=== PATIENT | female | born 1945 | race Caucasian/White ===

== ENCOUNTER 2018-04-10 15:03 | Emergency (ER) | payer MEDICARE, OTHER, SELFPAY ==
[2018-04-10 15:16] VITALS: BP 153/72; PULSE 84; RESP 16; TEMP 37; O2SAT 100; BMI 28.9
--- NOTE | 2018-04-10 15:53 | PC.NURSE ---
Pt was dx with kidney stone at [facility]. Pt reports pain moved from R mid back now to R flank. Denies urinary sx, dysuria, fever/chills, N-V, hematuria.
[2018-04-10 15:55] LABS: Bacteria Urine Few (2-10); RBC Urine 5-10/HPF (0-5/HPF); Squamous Epithelial Cell Urine 5-10 /HPF; WBC Urine 5-10/HPF (0-5/HPF)
[2018-04-10 15:56] LABS: Culture Indicated Urine Specimen Cultured
--- NOTE | 2018-04-10 16:02 | ED_ITS ---
HPI - Female Genitourinary <Diana Holly PA-C - Last Filed: 04/10/18 18:59> General Chief complaint: Urogenital-Female Stated complaint: thinks she has a kidney stone Time Seen by Provider: 04/10/18 15:15 Source: patient Mode of arrival: ambulatory Limitations: no limitations History of Present Illness HPI Narrative: This 72-year-old female was seen 3 days ago at a local urgent care due to right flank pain and diagnosed with kidney stone. She states that she is concerned because pain has continued to worsen, (worried about using up her pain medication but it does help). She has poor appetite and some nausea, no vomiting. She has not had hematuria. She has not had any new fever. She was given a prescription for Augmentin but never started this, also Temple and Zofran. She brought reports with her and had a 5 x 7 mm impacted stone at the UPJ causing moderate hydronephrosis. Related Data Home Medications Medication Instructions Recorded Confirmed amlodipine 5 mg tablet 5 mg PO DAILY 03/21/18 04/10/18 atorvastatin 80 mg tablet 80 mg PO QPM 03/21/18 04/10/18 bupropion HCl XL 150 mg 24 hr 450 mg PO QAM tab 03/21/18 04/10/18 tablet, extended release lamotrigine 100 mg tablet 100 mg PO QAM 03/21/18 04/10/18 levothyroxine 100 mcg capsule 100 mcg PO MOTUWETHFR 03/21/18 04/10/18 lisinopril 20 mg tablet 20 mg PO DAILY 03/21/18 04/10/18 metformin 500 mg tablet 1,000 mg PO BID 03/21/18 04/10/18 amoxicillin-pot clavulanate 1 tab PO BIDX7 04/10/18 04/10/18 hydrocodone-acetaminophen 1 - 2 tab PO Q6H PRN 04/10/18 04/10/18 lamotrigine 200 mg PO QPM 04/10/18 04/10/18 levothyroxine 200 mcg PO SUSA 04/10/18 04/10/18 ondansetron 4 mg PO Q8H PRN 04/10/18 04/10/18 tamsulosin 0.4 mg PO DAILYX5 04/10/18 04/10/18 Previous Rx's Medication Instructions Recorded hydrocodone-acetaminophen 1 tab PO Q6H PRN #18 tab 04/10/18 ondansetron 4 mg PO Q6-8H PRN #10 tab 04/10/18 Allergies Allergy/AdvReac Type Severity Reaction Status Date / Time ciprofloxacin [From Cipro] Allergy Verified 04/10/18 15:16 levofloxacin Allergy Verified 04/10/18 15:16 Review of Systems <MAURICIO Yeboah Last Filed: 04/10/18 18:59> Review of Systems All systems reviewed & are unremarkable except as noted in HPI and below Exam <MAURICIO Yeboah Last Filed: 04/10/18 18:59> Narrative Exam Narrative: GENERAL APPEARANCE: Patient sitting comfortably, in no distress. HEENT: PERRL, EOMI, no scleral icterus NECK: Supple LUNGS: Clear to auscultation bilaterally. HEART: Rate and rhythm regular, normal S1 and S2, no S3 or S4. ABDOMEN: Soft, nondistended, bowel sounds present x 4 quadrants, no masses palpable, no hepatosplenomegaly. Moderate right flank tenderness/CVAT. No tenderness elsewhere EXTREMITIES: No edema, no calf tenderness DERMATOLOGIC: No jaundice or exanthem NEUROLOGIC: Alert and oriented with normal speech and coordination Initial Vital Signs Initial Vital Signs: Vital Signs Temperature 98.6 F 04/10/18 15:16 Pulse Rate 84 04/10/18 15:16 Respiratory Rate 16 04/10/18 15:16 Blood Pressure 153/72 H 04/10/18 15:16 Pulse Oximetry 100 04/10/18 15:16 <Leonard Wright DO - Last Filed: 04/11/18 07:15> Initial Vital Signs Initial Vital Signs: Vital Signs Temperature 98.6 F 04/10/18 15:16 Pulse Rate 84 04/10/18 15:16 Respiratory Rate 16 04/10/18 15:16 Blood Pressure 153/72 H 04/10/18 15:16 Pulse Oximetry 100 04/10/18 15:16 Course <MAURICIO Yeboah Last Filed: 04/10/18 18:59> Additional Information: Patient is feeling significantly improved during her stay. She does have a bump in her creatinine which may be partly due to dehydration. Kidney stone and hydronephrosis do not appear changed. Reviewed labs and findings with Dr. Wright who agrees outpatient treatment is reasonable as urology is unlikely to do any intervention this evening or tomorrow. She was previously referred to Urology at [facility] where her PCP is. She will contact PCP via portal and ask about referral. She will call thing Sunday morning for follow-up. She thinks it unlikely that she would be able to be seen there before Sunday. Was given sufficient pain medication to last until then as she says this is effective at home. She states nausea has been well controlled with Zofran. She will start her Augmentin and continue tamsulosin. She agreed to return if any acutely worsening symptoms while waiting to see Urology, or new symptoms such as fever. Orders Ordered: Discontinued Medications Hydromorphone HCl (Dilaudid) 1 mg IV Q15M AMIRA Stop: 04/10/18 16:16 Last Admin: 04/10/18 16:24 Dose: 1 mg Ceftriaxone Sodium/Dextrose (Rocephin) 1 gm in 50 mls @ 100 mls/hr IV NOW ONE Stop: 04/10/18 16:23 Last Infusion: 04/10/18 17:07 Dose: 0 mls/hr Admin: 04/10/18 16:26 Dose: 100 mls/hr Sodium Chloride (Normal Saline 0.9%) 1,000 mls @ 1,000 mls/hr IV BOLUS ONE Stop: 04/10/18 16:53 Last Infusion: 04/10/18 17:45 Dose: 0 mls/hr Admin: 04/10/18 16:21 Dose: 1,000 mls/hr Ketorolac Tromethamine (Toradol) 15 mg IV NOW ONE Stop: 04/10/18 15:55 Last Admin: 04/10/18 16:21 Dose: 15 mg Ondansetron HCl (Zofran) 4 mg IV NOW ONE Stop: 04/10/18 15:55 Last Admin: 04/10/18 16:21 Dose: 4 mg Vital Signs - 8 hr 04/10/18 15:16 04/10/18 16:14 04/10/18 18:08 Temperature 98.6 F Pulse Rate 84 74 71 Respiratory Rate 16 18 16 Blood Pressure 153/72 H 114/73 Blood Pressure [Left Arm] 131/67 Pulse Oximetry 100 100 96 <Leonard Wright, DO - Last Filed: 04/11/18 07:15> Orders Ordered: Discontinued Medications Hydromorphone HCl (Dilaudid) 1 mg IV Q15M AMIRA Stop: 04/10/18 16:16 Last Admin: 04/10/18 16:24 Dose: 1 mg Ceftriaxone Sodium/Dextrose (Rocephin) 1 gm in 50 mls @ 100 mls/hr IV NOW ONE Stop: 04/10/18 16:23 Last Infusion: 04/10/18 17:07 Dose: 0 mls/hr Admin: 04/10/18 16:26 Dose: 100 mls/hr Sodium Chloride (Normal Saline 0.9%) 1,000 mls @ 1,000 mls/hr IV BOLUS ONE Stop: 04/10/18 16:53 Last Infusion: 04/10/18 17:45 Dose: 0 mls/hr Admin: 04/10/18 16:21 Dose: 1,000 mls/hr Ketorolac Tromethamine (Toradol) 15 mg IV NOW ONE Stop: 04/10/18 15:55 Last Admin: 04/10/18 16:21 Dose: 15 mg Ondansetron HCl (Zofran) 4 mg IV NOW ONE Stop: 04/10/18 15:55 Last Admin: 04/10/18 16:21 Dose: 4 mg Vital Signs - 8 hr 04/10/18 15:16 04/10/18 16:14 04/10/18 18:08 Temperature 98.6 F Pulse Rate 84 74 71 Respiratory Rate 16 18 16 Blood Pressure 153/72 H 114/73 Blood Pressure [Left Arm] 131/67 Pulse Oximetry 100 100 96 MDM - Female Genitourinary <Diana Holly PA-C - Last Filed: 04/10/18 18:59> Lab Data Attestation: I reviewed the patient's lab results. Result diagrams: 04/10/18 16:55 04/10/18 16:55 Lab Results 04/10/18 04/10/18 04/10/18 Range/Units 16:55 16:55 Unknown WBC 9.8 (4.5-11.0) X10^3/uL RBC 3.60 L (4.0-5.2) X10^6/uL Hgb 10.3 L (12.0-16.0) g/dL Hct 30.9 L (36-46) % MCV 85.9 (80-100) fL MCH 28.6 (26-34) PG MCHC 33.3 (30-36) % RDW 13.9 (11.6-14.8) % Plt Count 162 (150-400) X10^3/uL Neut % (Auto) 80.5 H (50-75) % Lymph % (Auto) 8.8 L (25-40) % Collin % (Auto) 10.0 (3-14) % Eos % (Auto) 0.5 L (2-4) % Baso % (Auto) 0.2 (0-2) % Neut # (Auto) 7900 H (5959-0205) /uL Sodium 134 L (137-145) mmol/L Potassium 4.5 (3.4-5.1) mmol/L Chloride 97 L (98-107) mmol/L Carbon Dioxide 26 (22-32) mmol/L BUN 26 H (7-17) mg/dL Creatinine 1.50 H (0.52-1.04) mg/dL Estimated GFR 34.2 L (>60) mL/min BUN/Creatinine Ratio 17.3 (6-22) Glucose 100 (80-110) mg/dL Calcium 8.8 (8.4-10.2) mg/dL Total Bilirubin 0.4 (0.2-1.3) mg/dL AST 18 (14-36) IU/L ALT 23 (9-52) IU/L Alkaline Phosphatase 59 (38-126) U/L Total Protein 6.2 L (6.3-8.2) g/dL Albumin 3.7 (3.5-5.0) g/dL Globulin 2.5 (1.7-4.1) g/dL Albumin/Globulin Ratio 1.5 (1.0-2.8) Lipase 50 (23-300) U/L Urine RBC 5-10/hpf H (0-5/HPF) Urine WBC 5-10/hpf H (0-5/HPF) Ur Squamous Epith Cells 5-10 /hpf H Urine Bacteria Few (2-10) H (None) Ur Culture Indicated? Specimen cultured Micro UA Comment Not Reportable Urine Dip Bedside Urine Glucose Negative Bedside Urine Bilirubin + 1 Bedside Urine Ketone - Negative Urine Specific [place] 1.030 Bedside Urine Occult Blood ++ Bedside Urine pH 5.5 Bedside Urine Protein + 30 Bedside Urine Urobilinogen - Negative Bedside Urine Nitrite - Negative Bedside Urine Leukocytes + [address] scan - abdomen: Radiologist's impression: [address] [address] [address] Scan Report Signed Patient: Kelley Alva SMR#: [id number] : 7Acct:[id number] Age/Sex: 72 / FDate of Service: 04/10/18 Loc: ED Accession Number: [id number] Procedure: CT kidney ureter bladder (KUB) Ordering Provider: Diana Holly P.A-C PROCEDURE: CT KIDNEY URETER BLADDER (KUB) INDICATIONS: known kidney stone, increased pain TECHNIQUE: Noncontrast 5 mm thick sections acquired from the diaphragms to the symphysis. 5 mm thick coronal and sagittal reformats were then performed. For radiation dose reduction, the following was used: automated exposure control, adjustment of mA and/or kV according to patient size. COMPARISON: None. FINDINGS: Image quality: Excellent. Lung bases: Lung bases are clear. Heart size is normal. Urinary system: Both kidneys are normal in size. 6 x 4 mm oval calcification is noted in the region of right UPJ/proximal ureter with mild to moderate right hydronephrosis. Mild right perinephric fat stranding is also seen. 6 mm nonobstructing stone in posterior cortex of mid pole right kidney is seen. No left-sided renal stone hydronephrosis. Both ureters appear non-dilated throughout their expected courses. Bladder wall thickness is normal; no calcified bladder stones. Other solid organs: Liver is normal in size. Gallbladder is within normal limits. Pancreas is normal in contours. Spleen is normal in size. No adrenal nodules. Peritoneum and bowel: Bowel loops demonstrate normal wall thickness and caliber. No free fluid or air. There is a small hiatal hernia. Nodes and vessels: No retroperitoneal or mesenteric adenopathy by size criteria. Aorta and inferior vena cava are normal in caliber. Abdominal wall: No ventral hernias. Pelvis: No free pelvic fluid. No inguinal hernias or adenopathy. 2.2 x 1.7 cm cystic structure in left adnexa is seen which may represent left ovarian cyst. Bones: No suspicious bony lesions. No vertebral body compression fractures. IMPRESSION: 1. 6 x 4 mm right UPJ/proximal ureteral stone with mild to moderate right hydronephrosis and mild right perinephric fat stranding. Nonobstructing right renal calculus. No left-sided renal stone or hydronephrosis. Normal appearing bilateral ureters or urinary bladder. 2. Small hiatal hernia. No bowel obstruction. No free fluid or free air. 3. Possible 2.2 x 1.7 cm left ovarian cyst. Dictated by: José Miguel Pang M.D. on 04/10/2018 at 16:49 Approved by: José Miguel Pang M.D. on 04/10/2018 at 16:54 <Leonard Wright DO - Last Filed: 04/11/18 07:15> Lab Data Lab Results 04/10/18 04/10/18 04/10/18 Range/Units 16:55 16:55 Unknown WBC 9.8 (4.5-11.0) X10^3/uL RBC 3.60 L (4.0-5.2) X10^6/uL Hgb 10.3 L (12.0-16.0) g/dL Hct 30.9 L (36-46) % MCV 85.9 (80-100) fL MCH 28.6 (26-34) PG MCHC 33.3 (30-36) % RDW 13.9 (11.6-14.8) % Plt Count 162 (150-400) X10^3/uL Neut % (Auto) 80.5 H (50-75) % Lymph % (Auto) 8.8 L (25-40) % Collin % (Auto) 10.0 (3-14) % Eos % (Auto) 0.5 L (2-4) % Baso % (Auto) 0.2 (0-2) % Neut # (Auto) 7900 H (2245-8889) /uL Sodium 134 L (137-145) mmol/L Potassium 4.5 (3.4-5.1) mmol/L Chloride 97 L (98-107) mmol/L Carbon Dioxide 26 (22-32) mmol/L BUN 26 H (7-17) mg/dL Creatinine 1.50 H (0.52-1.04) mg/dL Estimated GFR 34.2 L (>60) mL/min BUN/Creatinine Ratio 17.3 (6-22) Glucose 100 (80-110) mg/dL Calcium 8.8 (8.4-10.2) mg/dL Total Bilirubin 0.4 (0.2-1.3) mg/dL AST 18 (14-36) IU/L ALT 23 (9-52) IU/L Alkaline Phosphatase 59 (38-126) U/L Total Protein 6.2 L (6.3-8.2) g/dL Albumin 3.7 (3.5-5.0) g/dL Globulin 2.5 (1.7-4.1) g/dL Albumin/Globulin Ratio 1.5 (1.0-2.8) Lipase 50 (23-300) U/L Urine RBC 5-10/hpf H (0-5/HPF) Urine WBC 5-10/hpf H (0-5/HPF) Ur Squamous Epith Cells 5-10 /hpf H Urine Bacteria Few (2-10) H (None) Ur Culture Indicated? Specimen cultured Micro UA Comment Not Reportable Urine Dip Bedside Urine Glucose Negative Bedside Urine Bilirubin + 1 Bedside Urine Ketone - Negative Urine Specific [place] 1.030 Bedside Urine Occult Blood ++ Bedside Urine pH 5.5 Bedside Urine Protein + 30 Bedside Urine Urobilinogen - Negative Bedside Urine Nitrite - Negative Bedside Urine Leukocytes + 70 Esterase Discharge Plan Departure Patient Disposition: Home Clinical Impression: Kidney stone on right side Discharge Date/Time: 04/10/18 18:00 Interventions: ED Discharge Assessment Last Done: 04/10/18 18:08 Instructions: DI for Kidney Stones Activity Restrictions/Additional Instructions: Please return as we talked about if you have acutely worsening symptoms or new symptoms such as fever or vomiting. Otherwise, please continue your tamsulosin, start your antibiotic (Augmentin) that you already have. I have prescribed some additional antinausea medicine and hydrocodone/acetaminophen for pain. Please continue these as needed, do not drive with the pain medicine as it can make you sleepy (I did prescribe a higher dose for you today since you have needed to take 2 pills at a time). This stone may pass on its own, or may need treatment by a urologist. Please call your primary care office 1st thing on Sunday morning if you have not heard through the portal whether you need a referral to Urology so that you can schedule a follow-up by Sunday if this stone has not passed. If you are feeling better and think the stone has passed , please follow up with your PCP next week for recheck. Prescriptions: New hydrocodone-acetaminophen 10-325 mg tablet 1 tab PO Q6H PRN (Reason: acute kidney stone pain) Qty: 18 RF: 0 ondansetron 4 mg tablet,disintegrating 4 mg PO Q6-8H PRN (Reason: nausea and vomiting) Qty: 10 RF: 0 No Action metformin 500 mg tablet 1,000 mg PO BID RF: 0 atorvastatin [Lipitor] 80 mg tablet 80 mg PO QPM RF: 0 lisinopril 20 mg tablet 20 mg PO DAILY RF: 0 amlodipine 5 mg tablet 5 mg PO DAILY RF: 0 lamotrigine [Lamictal] 100 mg tablet 100 mg PO QAM RF: 0 levothyroxine 100 mcg capsule 100 mcg PO MOTUWETHFR RF: 0 bupropion HCl 150 mg tablet extended release 24 hr 450 mg PO QAM RF: 0 hydrocodone-acetaminophen 5-325 mg tablet 1 - 2 tab PO Q6H PRN (Reason: Pain, Moderate) RF: 0 tamsulosin 0.4 mg capsule 0.4 mg PO DAILYX5 RF: 0 ondansetron 4 mg tablet,disintegrating 4 mg PO Q8H PRN (Reason: Nausea And Vomiting) RF: 0 amoxicillin-pot clavulanate 875-125 mg tablet 1 tab PO BIDX7 RF: 0 levothyroxine 100 mcg Tablet 200 mcg PO SUSA RF: 0 lamotrigine 100 mg Tablet 200 mg PO QPM RF: 0 Referrals: Renetta Cole MD [Other] Emma Pereyra, Urology [Other] <Leonard Wright DO - Last Filed: 04/11/18 07:15> [facility] ED Attending Arlene Attestation: I was available for consultation during this patient's emergency department encounter
[2018-04-10 16:14] VITALS: BP 131/67; PULSE 74; RESP 18; O2SAT 100
[2018-04-10] MEDS: SODIUM CHLORIDE 0.9% 1,000 ML 1000 ML IV (16:21)
[2018-04-10] MEDS: ONDANSETRON 4 MG/2 ML INJ IV (16:21)
[2018-04-10] MEDS: KETOROLAC 60 MG/2 ML VIAL 15 MG IV (16:21)
[2018-04-10] MEDS: HYDROMORPHONE 1 MG INJ IV (16:24)
--- NOTE | 2018-04-10 16:25 | DI.CT.S_ITS ---
PROCEDURE: CT KIDNEY URETER BLADDER (KUB) INDICATIONS: known kidney stone, increased pain TECHNIQUE: Noncontrast 5 mm thick sections acquired from the diaphragms to the symphysis. 5 mm thick coronal and sagittal reformats were then performed. For radiation dose reduction, the following was used: automated exposure control, adjustment of mA and/or kV according to patient size. COMPARISON: None. FINDINGS: Image quality: Excellent. Lung bases: Lung bases are clear. Heart size is normal. Urinary system: Both kidneys are normal in size. 6 x 4 mm oval calcification is noted in the region of right UPJ/proximal ureter with mild to moderate right hydronephrosis. Mild right perinephric fat stranding is also seen. 6 mm nonobstructing stone in posterior cortex of mid pole right kidney is seen. No left-sided renal stone hydronephrosis. Both ureters appear non-dilated throughout their expected courses. Bladder wall thickness is normal; no calcified bladder stones. Other solid organs: Liver is normal in size. Gallbladder is within normal limits. Pancreas is normal in contours. Spleen is normal in size. No adrenal nodules. Peritoneum and bowel: Bowel loops demonstrate normal wall thickness and caliber. No free fluid or air. There is a small hiatal hernia. Nodes and vessels: No retroperitoneal or mesenteric adenopathy by size criteria. Aorta and inferior vena cava are normal in caliber. Abdominal wall: No ventral hernias. Pelvis: No free pelvic fluid. No inguinal hernias or adenopathy. 2.2 x 1.7 cm cystic structure in left adnexa is seen which may represent left ovarian cyst. Bones: No suspicious bony lesions. No vertebral body compression fractures. IMPRESSION: 1. 6 x 4 mm right UPJ/proximal ureteral stone with mild to moderate right hydronephrosis and mild right perinephric fat stranding. Nonobstructing right renal calculus. No left-sided renal stone or hydronephrosis. Normal appearing bilateral ureters or urinary bladder. 2. Small hiatal hernia. No bowel obstruction. No free fluid or free air. 3. Possible 2.2 x 1.7 cm left ovarian cyst. Dictated by: José Miguel Pang M.D. on 04/10/2018 at 16:49 Approved by: José Miguel Pang M.D. on 04/10/2018 at 16:54
[2018-04-10] MEDS: CEFTRIAXONE 1 GM/50 ML FROZ.PIGGY IV (16:26)
[2018-04-10 17:01] LABS: Add Manual Diff / Slide Review NO; Basophils Percent Auto 0.2 % (0-2); Eosinophils Percent Auto 0.5 % (2-4); Hematocrit 30.9 % (36-46); Hemoglobin 10.3 g/dL (12.0-16.0); Lymphocytes Percent Auto 8.8 % (25-40); Mean Corpuscular HGB Conc 33.3 % (30-36); Mean Corpuscular Hemoglobin 28.6 PG (26-34); Mean Corpuscular Volume 85.9 fL (80-100); Neutrophils Absolute Auto 7900 /uL (3000-5900); Neutrophils Percent Auto 80.5 % (50-75); Platelet Count 162 X10^3/uL (150-400); Red Cell Distribution Width 13.9 % (11.6-14.8); White Blood Cell Count 9.8 X10^3/uL (4.5-11.0)
[2018-04-10 17:13] LABS: Alanine Aminotransferase 23 IU/L (9-52); Albumin 3.7 g/dL (3.5-5.0); Albumin Globulin Ratio 1.5 (1.0-2.8); Alkaline Phosphatase 59 U/L (38-126); Aspartate Aminotransferase 18 IU/L (14-36); BUN Creatinine Ratio 17.3 (6-22); Bilirubin Total 0.4 mg/dL (0.2-1.3); Blood Urea Nitrogen 26 mg/dL (7-17); Calcium 8.8 mg/dL (8.4-10.2); Carbon Dioxide 26 mmol/L (22-32); Chloride 97 mmol/L (98-107); Estimated Glomerular Filt Rate 34.2 mL/min (>60); Globulin 2.5 g/dL (1.7-4.1); Glucose 100 mg/dL (80-110); HEMOLYSIS < 15 (0-50); Lipase 50 U/L (23-300); Potassium 4.5 mmol/L (3.4-5.1); Sodium 134 mmol/L (137-145); Total Protein 6.2 g/dL (6.3-8.2)
[2018-04-10 18:08] VITALS: BP 114/73; PULSE 71; RESP 16; O2SAT 96
== END 2018-04-10 18:00 | disposition home or self-care (01) ==
PROVIDERS: Emergency Provider Internal Medicine
DX: N20.0 Calculus of kidney (principal)
CPT/HCPCS: 36415; 36591; 74176; 80053; 81003; 81015; 82962; 83690; 85025; 87086; 96361; 96365; 96375; 99283; 99284; J1170; J1885; J2405

== ENCOUNTER 2018-04-28 19:49 | Emergency (ER) | payer MEDICARE, OTHER, SELFPAY ==
[2018-04-28 20:16] VITALS: BP 151/83; PULSE 91; RESP 18; TEMP 37.4; O2SAT 96; BMI 28.9
[2018-04-28 21:40] LABS: Bacteria Urine Few (2-10); Culture Indicated Urine Specimen Cultured; RBC Urine 0-1/HPF (0-5/HPF); Squamous Epithelial Cell Urine 0-1 /HPF; WBC Urine 10-30/HPF (0-5/HPF)
--- NOTE | 2018-04-28 21:43 | PC.NURSE ---
patient is also complaining of urgency and frequency.
--- NOTE | 2018-04-28 22:08 | ED.FEMALEGU ---
HPI - Female Genitourinary General Chief complaint: Urogenital-Female Stated complaint: increased urge to urinate Time Seen by Provider: 04/28/18 21:15 Source: patient Mode of arrival: ambulatory Limitations: no limitations History of Present Illness HPI Narrative: Patient complains of dysuria and back pain for the last to 3 days. She states that she had a stent placed in her right ureter, after forming a kidney stone that is too large to pass. Patient has had multiple kidney stones in the past but states that this is the only 1 risk that has required a stent. Patient states she was on nitrofurantoin prophylactically for the 1st 3 days after her surgery, but since then she went off the medication, as directed, and then her current symptoms started a couple of days later. Patient states she has felt as though she may have had a fever but has not measured an actual fever. No nausea or vomiting. No chest symptoms of shortness of breath or chest pain. Related Data Home Medications Medication Instructions Recorded Confirmed amlodipine 5 mg tablet 5 mg PO DAILY 03/21/18 04/10/18 atorvastatin 80 mg tablet 80 mg PO QPM 03/21/18 04/10/18 bupropion HCl XL 150 mg 24 hr 450 mg PO QAM tab 03/21/18 04/10/18 tablet, extended release lamotrigine 100 mg tablet 100 mg PO QAM 03/21/18 04/10/18 levothyroxine 100 mcg capsule 100 mcg PO MOTUWETHFR 03/21/18 04/10/18 lisinopril 20 mg tablet 20 mg PO DAILY 03/21/18 04/10/18 metformin 500 mg tablet 1,000 mg PO BID 03/21/18 04/10/18 amoxicillin-pot clavulanate 1 tab PO BIDX7 04/10/18 04/10/18 hydrocodone-acetaminophen 1 - 2 tab PO Q6H PRN 04/10/18 04/10/18 lamotrigine 200 mg PO QPM 04/10/18 04/10/18 levothyroxine 200 mcg PO SUSA 04/10/18 04/10/18 ondansetron 4 mg PO Q8H PRN 04/10/18 04/10/18 tamsulosin 0.4 mg PO DAILYX5 04/10/18 04/10/18 Previous Rx's Medication Instructions Recorded hydrocodone-acetaminophen 1 tab PO Q6H PRN #18 tab 04/10/18 ondansetron 4 mg PO Q6-8H PRN #10 tab 04/10/18 sulfamethoxazole-trimethoprim 1 tab PO BID #14 tab 04/28/18 [Bactrim DS] Allergies Allergy/AdvReac Type Severity Reaction Status Date / Time ciprofloxacin [From Cipro] Allergy Verified 04/10/18 15:16 levofloxacin Allergy Verified 04/10/18 15:16 Review of Systems Review of Systems All systems reviewed & are unremarkable except as noted in HPI and below Constitutional Denies chills, Denies fever(s), Denies lethargy and Denies weakness Eyes Denies change in vision, Denies eye discharge, Denies irritation and Denies loss of vision ENT Ears, Nose, Mouth, and Throat: Denies change in voice, Denies neck pain and Denies sore throat Cardiovascular Denies chest pain, Denies irregular heart rhythm, Denies lightheadedness, Denies palpitations, Denies dyspnea, Denies dyspnea on exertion and Denies orthopnea Respiratory Denies cough, Denies dyspnea, Denies dyspnea on exertion and Denies wheezing Gastrointestinal Gastrointestinal: Denies abdominal pain, Denies change in bowel habits, Denies diarrhea, Denies nausea and Denies vomiting Genitourinary Denies hematuria, Denies flank pain, Denies urinary incontinence and Reports urinary urgency Musculoskeletal Denies neck pain Integumentary/Breasts Denies pruritus, Denies erythema, Denies rash and Denies wounds Neurologic Denies confusion, Denies loss of vision and Denies weakness Psychiatric Denies anxiety, Denies confusion, Denies depression, Denies homicidal ideation and Denies suicidal ideation Endocrine Denies palpitations Hematologic/Lymphatic Denies easy bruising Allergic/Immunologic Denies wheezing [facility] Medical History HTN (hypertension) (Chronic) Hx of non-insulin dependent diabetes mellitus (Chronic) Hyperlipidemia (Chronic) Hypothyroidism (Chronic) Surgical History History of knee replacement (Resolved) Social History Smoking Status: Former smoker alcohol intake: never Exam Initial Vital Signs Initial Vital Signs: Vital Signs Temperature 99.3 F 04/28/18 20:16 Pulse Rate 91 H 04/28/18 20:16 Respiratory Rate 18 04/28/18 20:16 Blood Pressure 151/83 H 04/28/18 20:16 Pulse Oximetry 96 04/28/18 20:16 Const General: cooperative and well developed Nutritional Appearance: well nourished Orientation: alert, awake, oriented x3 and not confused [facility] Head: normocephalic and atraumatic Ears: external ears normal Nose: external nose normal and No nasal discharge Face and sinus: face symmetric and No dry mucous membranes Mouth: oral mucosae normal and moist mucous membranes Teeth and gingiva: dentition normal Eyes General: appearance normal, both eyes and all related structures Eyelids: eyelids normal Conjunctivae: conjunctivae normal Sclera: sclerae normal Pupils: PERRL EOM: EOM intact bilaterally Neck Neck: normal visual inspection, trachea midline, No lymphadenopathy, No midline deformity and No JVD Lymphatic: No lymphedema Chest Chest: normal inspection of the chest Resp Effort & Inspection: normal respiratory effort, able to speak in complete sentences, no respiratory distress and no use of accessory muscles Auscultation: clear to auscultation bilaterally, no rales, no rhonchi and no wheezes Cardio Rate: regular rate Rhythm: regular rhythm Heart Sounds: no click, no gallops, no murmurs and no rubs Pulses: normal peripheral pulses GI Inspection: non-distended Palpation: soft, no hepatosplenomegaly, No guarding, No pulsatile mass and No tender Back/Spine/Pelvis Back: No CVA tenderness Cervical Spine: cervical ROM normal and No pain with cervical ROM Thoracic/Lumbar Spine: thoracic and lumbar spine normal to inspection Skin General: no rashes or lesions noted, No jaundice and No petechiae Neuro General: alert, oriented x3, gait normal and no focal motor deficits Speech: speech normal Extrem General: full ROM, no clubbing, cyanosis or edema, no pedal edema and no calf tenderness Psych Appearance: well kempt Mental Status: mental status grossly normal Attitude: cooperative Thought Content: normal and suicidality Judgment: judgment good Course Course Narrative: Patient was found have a urinary tract infection. I started her on Bactrim in the emergency department and have also given her a prepack from here and a prescription to equal a total course of 7 days. Patient has a follow-up appointment in 5 days with her urologist. We have discussed the usual indications for return to the emergency department. Orders Ordered: Discontinued Medications Trimethoprim/Sulfamethoxazole (Bactrim Ds) 1 tab PO NOW ONE Stop: 04/28/18 22:24 Last Admin: 04/28/18 22:38 Dose: 1 tab Trimethoprim/Sulfamethoxazole (Bactrim Ds Prepack) 1 bottle MISC SEEINSTR ONE Stop: 04/28/18 22:24 Last Admin: 04/28/18 22:39 Dose: 1 bottle Vital Signs - 8 hr 04/28/18 22:56 Temperature 97.8 F Pulse Rate 79 Respiratory Rate 16 Blood Pressure 120/75 Pulse Oximetry 98 MDM - Female Genitourinary Medical Records Attestation: I reviewed the patient's medical records. Lab Data Attestation: I reviewed the patient's lab results. Lab Results 04/28/18 Range/Units 20:20 Urine RBC 0-1/hpf (0-5/HPF) Urine WBC 10-30/hpf H (0-5/HPF) Ur Squamous Epith Cells 0-1 /hpf Urine Bacteria Few (2-10) H (None) Ur Culture Indicated? Specimen cultured Micro UA Comment Not Reportable Urine Dip Bedside Urine Glucose Negative Bedside Urine Bilirubin - Negative Bedside Urine Ketone - Negative Urine Specific [place] 1.005 Bedside Urine Occult Blood +++ Bedside Urine pH 7.0 Bedside Urine Protein ++ 100 Bedside Urine Urobilinogen - Negative Bedside Urine Nitrite + Positive Bedside Urine Leukocytes +++ 500 Esterase Discharge Plan Departure Patient Disposition: Home Clinical Impression: Urinary tract infection Discharge Date/Time: 04/28/18 22:57 Interventions: ED Discharge Assessment Last Done: 04/28/18 22:56 Instructions: DI for Urinary Tract Infection (UTI) Activity Restrictions/Additional Instructions: Please follow up with your urologist on Sunday, as scheduled. Prescriptions: New sulfamethoxazole-trimethoprim [Bactrim DS] 800-160 mg tablet 1 tab PO BID Qty: 14 RF: 0 No Action metformin 500 mg tablet 1,000 mg PO BID RF: 0 atorvastatin [Lipitor] 80 mg tablet 80 mg PO QPM RF: 0 lisinopril 20 mg tablet 20 mg PO DAILY RF: 0 amlodipine 5 mg tablet 5 mg PO DAILY RF: 0 lamotrigine [Lamictal] 100 mg tablet 100 mg PO QAM RF: 0 levothyroxine 100 mcg capsule 100 mcg PO MOTUWETHFR RF: 0 bupropion HCl 150 mg tablet extended release 24 hr 450 mg PO QAM RF: 0 hydrocodone-acetaminophen 5-325 mg tablet 1 - 2 tab PO Q6H PRN (Reason: Pain, Moderate) RF: 0 tamsulosin 0.4 mg capsule 0.4 mg PO DAILYX5 RF: 0 ondansetron 4 mg tablet,disintegrating 4 mg PO Q8H PRN (Reason: Nausea And Vomiting) RF: 0 amoxicillin-pot clavulanate 875-125 mg tablet 1 tab PO BIDX7 RF: 0 levothyroxine 100 mcg Tablet 200 mcg PO SUSA RF: 0 lamotrigine 100 mg Tablet 200 mg PO QPM RF: 0 hydrocodone-acetaminophen 10-325 mg tablet 1 tab PO Q6H PRN (Reason: acute kidney stone pain) Qty: 18 RF: 0 ondansetron 4 mg tablet,disintegrating 4 mg PO Q6-8H PRN (Reason: nausea and vomiting) Qty: 10 RF: 0
[2018-04-28] MEDS: TRIMETH/SULFA 160/800 (DS) TABLET 1 TAB PO (22:38)
[2018-04-28] MEDS: TRIMETH/SULFA 160/800 PREPACK 1 BOTTLE MISC (22:39)
[2018-04-28 22:56] VITALS: BP 120/75; PULSE 79; RESP 16; TEMP 36.6; O2SAT 98
== END 2018-04-28 22:57 | disposition home or self-care (01) ==
PROVIDERS: Emergency Provider Emergency Medicine
DX: N39.0 Urinary tract infection, site not specified (principal)
CPT/HCPCS: 81003; 81015; 87077; 87086; 87186; 99283